=== PATIENT | male | born 1960 | race Caucasian/White ===

== ENCOUNTER 2023-05-21 13:06 | Emergency (ER) | payer SELFPAY ==
[2023-05-21 13:08] VITALS: BP 171/92; BMI 27.4
--- NOTE | 2023-05-21 14:44 | ED.GENMED ---
History of Present Illness
<ANGELIA Klein Last Filed: 05/26/23 08:09>
General
Chief Complaint: Fall
Source: patient
Exam Limitations: none
Time Seen by Provider: 05/21/23 13:53
Nursing documentation reviewed up to this point in time: agreed with
Travel History
Have you had any contact with someone who has COVID-19?: No
Do you have any symptoms of coronavirus? Fever > 100 degrees, chills, cough, shortness of breath, sore throat, loss of taste or smell, muscle aches, or headache?: No
History of Present Illness
History of Present Illness:
62 y/o M h/o HTN, GERD, psoriasis
here with neck pain and left posterior rib pain after mechanical slip and fall outof the shower yesterday
pt says that he fell and landed with his back against the sink and then hit his head
he has pain across upper neck which is worse with movement, specifically flexion
pt had no LOC,dazed feeling, nausea or vomiting
but he has signficiant left sided posterior rib pain with breathing and movement
he took motrin this morning with mild relief. he has no chest pain, paresthesias, weakness, numbness, abdominal pain, vomiting, nausea, blurry vision
no thinners
says he does not have insurance and is concerned about how much testing we will need to order.
Past History
<ANGELIA Klein Last Filed: 05/26/23 08:09>
Past History
ED Past Medical History: GERD, HTN and Other (Psoriasis)
ED Past Surgical History: None
Social History
Tobacco: Former smoker (Cigars)
Alcohol: Daily
Drug: None
Personal:
Living: with family
Employment: Employed
Family History
Family History: CAD
Review of Systems
<ANGELIA Klein Filed: 05/26/23 08:09>
Review of Systems
Allergies reviewed?: Yes
All Other Systems: Not applicable
Phy Exam
<Yari Welch PA-C - Last Filed: 05/26/23 08:09>
Physical Exam
Physical Exam:
GENERAL: Alert , in no apparent distress
HEAD: NCAT
NECK: cervical midline tenderness c1/c2, no bruising, no swelling; painful flexion, full extension intact
EYE: pupils equal and reactive, EOMs intact.
ENT: o/p clr, mmm. no hemotympanum
CARDIAC: Regular rate and rhythm, no edema
LUNGS: Clear breath sounds bilaterally, no acute respiratory distress, no wheezes/rales/rhonchi
posterior chest wall: tender left lower ribs CVA region
ABDOMEN: Soft, without focal tenderness, no r/g,
+ rib/cva region tedneress';
NEUROLOGICAL: Alert and oriented, no focal neuro deficits, CN intact, 5/5 strength, sensation intact
SKIN: Warm and dry, psoriatic plaques chest and back
MUSCULOSKELETAL: No edema, well perfused.
PSYCH: Normal and appropriate interaction.
Course
<Yari Welch PA-C - Last Filed: 05/26/23 08:09>
Orders/Labs/Results
Orders:
Orders
05/21/23 15:04
CT Cervical Spine W/o Iv Contr Urgent
Comment:
Reason For Exam: upper neck pain after fall
CT Head W/o Iv Contrast Urgent
Comment:
Reason For Exam: head/neck pain after fall
Acetaminophen [Tylenol] 650 mg PO NOW STA
Ribs, Left 3 View W/PA Chest CR [CR Ribs-left 3 Vw W/pa Chest] Urgent
Comment:
Reason For Exam: left posterior rib pain after fall
05/21/23 15:52
Urinalysis Reflex To Culture Urgent
Date Specimen was Collected: 05/21/23
Time Specimen was Collected: 14:29
05/21/23 16:55
Ibuprofen [Motrin] 600 mg PO NOW STA
Incentive Spirometry [Rx Incentive Spirometry] [RESP] Urgent
Frequency: q1h while awake
Abnormal Lab Results
05/21/23
15:52
Urine Ketones 3+ A
(Negative)
Vital Signs
Initial and Last Documented VS:
Initial Vital Signs
Temp Pulse Resp BP Pulse Ox
97.9 F 93 18 171/92 98
05/21/23 13:08 05/21/23 13:08 05/21/23 13:08 05/21/23 13:08 05/21/23 13:08
Last Documented Vital Signs
Temp Pulse Resp BP Pulse Ox
97.9 F 76 18 167/94 98
05/21/23 13:08 05/21/23 16:56 05/21/23 16:56 05/21/23 16:56 05/21/23 16:56
<Onel Chen, DO - Last Filed: 05/21/23 15:10>
Orders/Labs/Results
Orders:
Orders
05/21/23 15:04
CT Cervical Spine W/o Iv Contr Urgent
Comment:
Reason For Exam: upper neck pain after fall
CT Head W/o Iv Contrast Urgent
Comment:
Reason For Exam: head/neck pain after fall
Acetaminophen [Tylenol] 650 mg PO NOW STA
Ribs, Left 3 View W/PA Chest CR [CR Ribs-left 3 Vw W/pa Chest] Urgent
Comment:
Reason For Exam: left posterior rib pain after fall
05/21/23 15:52
Urinalysis Reflex To Culture Urgent
Date Specimen was Collected: 05/21/23
Time Specimen was Collected: 14:29
05/21/23 16:55
Ibuprofen [Motrin] 600 mg PO NOW STA
Incentive Spirometry [Rx Incentive Spirometry] [RESP] Urgent
Frequency: q1h while awake
Abnormal Lab Results
05/21/23
15:52
Urine Ketones 3+ A
(Negative)
Vital Signs
Initial and Last Documented VS:
Initial Vital Signs
Temp Pulse Resp BP Pulse Ox
97.9 F 93 18 171/92 98
05/21/23 13:08 05/21/23 13:08 05/21/23 13:08 05/21/23 13:08 05/21/23 13:08
Last Documented Vital Signs
Temp Pulse Resp BP Pulse Ox
97.9 F 76 18 167/94 98
05/21/23 13:08 05/21/23 16:56 05/21/23 16:56 05/21/23 16:56 05/21/23 16:56
<Yari Welch PA-C - Last Filed: 05/26/23 08:09>
MDM/Problems Addressed
Differential Diagnosis Includes:
rib fracture, rib dcontusion, kidney contusion, concussion, cervicla fracture
MDM/Problems Addressed:
62 yo M with pain in neck and left back/ribs after mechanical fall yesterday out of the shower
no intoxication at the time
no thinners
no LCO
having proximal neck pain with omvement without neuro symptoms
no concussive symptoms
as well as pain in left lower back/ribs area with breathing, coughing movement
not splinting
pt tender over CVA region
felt that he should have CT scan to eval kidney/ribs/lung but pt was very concerned about lack of insurance and would prefer minimal imaging
seen by ed attending
we agreed upon UA and rib series
if UA + for blood --> ct
ua was neg
rib series also neg
suspect subtle rib fx vs contusion --> pain meds, incentive spirometry
ct head/neck neg for fx.
<Yari Welch PA-C - Last Filed: 05/26/23 08:09>
*Critical Care Note
Total Time (30-74mins, 75-104mins- exclusive of procedures): Not Applicable
ED Attending Note
<Yari Welch PA-C - Last Filed: 05/26/23 08:09>
-
Portions of this chart may have been created with voice recognition software.� Occasional wrong word or��sound alike� substitutions may have occurred due to the inherent limitations of voice recognition software.
<Onel Chen, - Last Filed: 05/21/23 15:10>
ED Attending Note
Patient seen and examined by attending physician: Yes
ED Attending Note:
I have reviewed and agree with history and treatment plan by Lena Welch. Patient has left rib tenderness, I do not appreciate CVA tenderness. CT head neck pending, chest x-ray and rib series pending.
Discharge Plan
Departure
Patient Disposition: Home (Routine Discharge)
Date of Disposition: 05/21/23
Time of Disposition: 16:51
Patient with high blood pressure during this ER visit?: No
Condition: Fair
Covid-19: Not Applicable
Discharge Problem:
Fall, Contusion of rib, Neck pain
Instructions: Bruised Rib (DC), Preventing Falls ED
Prescriptions:
New
hydrocodone-acetaminophen 5-325 mg tablet
1 tab PO Q8H PRN (Reason: Pain) Qty: 12 0RF
ibuprofen 600 mg tablet
600 mg PO Q8H PRN (Reason: Pain) Qty: 20 0RF
No Action
Bp Medication
1 tab PO DAILY
hydrocodone-acetaminophen 5-325 mg tablet
1 tab PO Q8H PRN (Reason: pain) Qty: 10 0RF
metoprolol succinate [Toprol XL] 50 mg tablet extended release 24 hr
50 mg PO DAILY Qty: 30 1RF
Referrals:
Tito Elkins MD [Family Provider] - Follow up in 5-7 days
Activity Restrictions/Additional Instructions:
Your x-ray showed no obvious broken ribs however you could have 1 or 2 subtle rib fractures that were not visualized. Use the incentive spirometer every 2 hours while you are awake to make sure you are taking deep breaths. Take ibuprofen 600 mg 3
times a day for pain. If the pain is more severe you can use hydrocodone/Tylenol tablet 1 every 6 hours as needed. This is a narcotic and should not be taken with alcohol or when you are driving a car. While you are taking this you should use a
stool softener to prevent constipation.
You can apply lidocaine patches to your side if you would like, these are [id number]-[id number]. You can use ice off-and-on when you are not applying the patch.
Make sure to take deep breaths to avoid pneumonia.
Follow-up with your doctor next week. Your head and neck CTs showed no signs of trauma, you did have some straightening of your muscles suggesting of pulled or tight muscles of your neck.
The ibuprofen should help this.
Return for numbness tingling or weakness in arms or legs, severe pain, shortness of breath, fever or chills or any concerns
Interventions
Interventions:
*Risk Screen - Suicide Last Done: 05/21/23 13:08
*General Assessment Last Done: 05/21/23 14:33
*Neglect/Abuse Screening Last Done: 05/21/23 13:08
*ED COVID-19 Vaccine History Last Done: 05/21/23 13:08
*Nursing Disposition Last Done: 05/21/23 17:11
ED-Musculoskeletal Assessment Last Done: 05/21/23 14:41
ED- Neurological Assessment Last Done: 05/21/23 14:41
ED-Skin Assessment Last Done: 05/21/23 14:41
Discharge Date and Time
Discharge Date/Time: 05/21/23 17:12
Print Language: SWEDISH
[2023-05-21] MEDS: TYLENOL 650 MG PO (15:08)
[2023-05-21 16:02] LABS: Urine Albumin Negative (Neg - Trace); Urine Bilirubin Negative (Negative); Urine Character Clear (Clear); Urine Color Yellow; Urine Glucose Negative (Negative); Urine Ketone 3+ (Negative); Urine Leukocyte Negative (Negative); Urine Nitrite Negative (Negative); Urine Occult Blood Negative (Negative); Urine Specific Gravity 1.015 (<1.030); Urine Urobilinogen Negative (Neg - 1+)
[2023-05-21 16:56] VITALS: BP 167/94
== END 2023-05-21 17:12 | disposition home or self-care (01) ==
LOC: EMR 13:06
PROVIDERS: Physician Assistant; EMERGENCY PHYSICIAN Emergency Medicine; FAMILY PHYSICIAN Internal Medicine
DX: S20.20XA Contusion of thorax, unspecified, initial encounter (principal); M54.2 Cervicalgia; W01.0XXA Fall on same level from slipping, tripping and stumbling without subsequent striking against object, initial encounter; I10 Essential (primary) hypertension; K21.9 Gastro-esophageal reflux disease without esophagitis; L40.9 Psoriasis, unspecified; Z87.891 Personal history of nicotine dependence
CPT/HCPCS: 99284; 70450; 71101; 72125; 81003

== ENCOUNTER 2024-03-06 08:42 | Emergency (ER) | payer SELFPAY ==
[2024-03-06 08:43] VITALS: BP 138/88
[2024-03-06 09:17] LABS: COVID-19 Antigen Negative (Negative)
[2024-03-06] MEDS: NSS 1000 IV (10:01)
--- NOTE | 2024-03-06 10:03 | ED.GENMED ---
History of Present Illness
General
Chief Complaint: Cold/Flu/URI Symptoms
Source: patient
Time Seen by Provider: 03/06/24 09:10
History of Present Illness
History of Present Illness:
63-year-old male with past medical history of hypertension and GERD presenting to the emergency department for evaluation after stating he feels as if he has the flu for the last week noting fevers, cough, body aches, fatigue and generally feeling
unwell. No known sick contacts, recent travel or recent antibiotics. Patient states that today he just felt more fatigued which is what prompted him to come to the ER. He denies any GI related upset, rashes, abdominal pain, urinary symptoms or
bowel changes. No other concerns presently.
Past History
Past History
ED Past Medical History: GERD, HTN and Other (Psoriasis)
ED Past Surgical History: None
Social History
Tobacco: Former smoker (Cigars)
Alcohol: Daily
Drug: None
Personal:
Living: with family
Employment: Employed
Family History
Family History: CAD
Review of Systems
Review of Systems
All Other Systems: ROS reviewed and negative except as documented in HPI and ROS
Phy Exam
Physical Exam
Physical Exam:
GENERAL: Alert , in no apparent distress
EYE: conjunctiva clear
Head: Normocephalic atraumatic
NECK: Supple,
ENT: mmm.
LUNGS: no acute respiratory distress
NEUROLOGICAL: Alert and oriented
SKIN: Warm and dry, skin intact.
MUSCULOSKELETAL: well perfused.
PSYCH: Normal and appropriate interaction.
Scores
Heart Failure Risk
Heart Failure Risk Score: Not Applicable
Heart Score for Chest Pain Patients
STEMI patient?: Not applicable
Withdrawal Assessment of Alcohol
Withdrawal Assessment Completed?: Not applicable
Course
Orders/Labs/Results
Orders:
Orders
03/06/24 08:49
COVID-19 Antigen Urgent
Source: Nasal Swab
Influenza A+B Rapid Molecular Urgent
ABDIEL Source: Nasal Swab
Specimen Description:
03/06/24 09:40
0.9% Sodium Chloride 1000 ml [Nss] 1,000 ml IV BOLUS
Vital Signs
Initial and Last Documented VS:
Initial Vital Signs
Temp Pulse Resp BP Pulse Ox
98.4 F 98 16 138/88 98
03/06/24 08:43 03/06/24 08:43 03/06/24 08:43 03/06/24 08:43 03/06/24 08:43
Last Documented Vital Signs
Temp Pulse Resp BP Pulse Ox
98.4 F 73 18 140/82 96
03/06/24 08:43 03/06/24 10:28 03/06/24 10:28 03/06/24 10:28 03/06/24 10:28
MDM/Problems Addressed
Differential Diagnosis Includes:
COVID, flu, other viral etiology, pneumonia
MDM/Problems Addressed:
63-year-old male presenting to the emergency department for evaluation of flulike symptoms that been ongoing for the last week. No known sick contacts. COVID and flu testing ordered in triage and patient did test positive for the flu. He does
note that he feels a little bit dehydrated. Will order 1 L normal saline solution. Discharge following. Patient unfortunately not a candidate for Tamiflu given he is already been symptomatic for 1 week.
*Pulse Oximetry
Patient hypoxic: no
*Critical Care Note
Total Time (30-74mins, 75-104mins- exclusive of procedures): Not Applicable
Patient Management
Escalation/DeEscalation of care consider admission/obs:
Patient completed IVF without complications. Stable for d/c home
ED Attending Note
-
Portions of this chart may have been created with voice recognition software.� Occasional wrong word or��sound alike� substitutions may have occurred due to the inherent limitations of voice recognition software.
Discharge Plan
Departure
Patient Disposition: Home (Routine Discharge)
Date of Disposition: 03/06/24
Time of Disposition: 10:53
Patient with high blood pressure during this ER visit?: Yes
Discharge Problem:
Influenza A
Instructions: Flu in adults - Discharge instructions
Prescriptions:
No Action
Bp Medication
1 tab PO DAILY
hydrocodone-acetaminophen 5-325 mg tablet
1 tab PO Q8H PRN (Reason: pain) Qty: 10 0RF
metoprolol succinate [Toprol XL] 50 mg tablet extended release 24 hr
50 mg PO DAILY Qty: 30 1RF
hydrocodone-acetaminophen 5-325 mg tablet
1 tab PO Q8H PRN (Reason: Pain) Qty: 12 0RF
ibuprofen 600 mg tablet
600 mg PO Q8H PRN (Reason: Pain) Qty: 20 0RF
Referrals:
Tito Elkins MD [Family Provider] -
Interventions
Interventions:
*Risk Screen - Suicide Last Done: 03/06/24 08:43
*General Assessment Last Done: 03/06/24 08:43
*Neglect/Abuse Screening Last Done: 03/06/24 08:43
ED- Fall Risk Assessment Last Done: 03/06/24 10:28
*ED COVID-19 Vaccine History Last Done: 03/06/24 08:43
*Nursing Disposition Last Done: 03/06/24 11:17
ED- Pulmonary Assessment Last Done: 03/06/24 10:28
Discharge Date and Time
Discharge Date/Time: 03/06/24 11:31
Print Language: KAZAKH
[2024-03-06 10:28] VITALS: BP 140/82
== END 2024-03-06 11:31 | disposition home or self-care (01) ==
LOC: EMR 08:42
PROVIDERS: Student in an Organized Health Care Education/Training Program; EMERGENCY PHYSICIAN Emergency Medicine; FAMILY PHYSICIAN Internal Medicine
DX: J10.1 Influenza due to other identified influenza virus with other respiratory manifestations (principal); I10 Essential (primary) hypertension; K21.9 Gastro-esophageal reflux disease without esophagitis; Z87.891 Personal history of nicotine dependence
CPT/HCPCS: 96360; 99284; 87502; 87811